=== PATIENT | female | born 1970 | race Caucasian/White ===

== ENCOUNTER 2020-10-23 11:02 | Observation (INO) | payer OTHER ==
[~2020-10-23] VITALS: Ht 175.3 cm; Wt 95.2 kg
[~2020-10-23 11:02] MED LIST: ACEBUTCAFT PO; ACEDIPPM PO; ALPR.5 PO; ALPR1 PO; AMOCLA500 PO; Ativan1 MG SL; BUTASPCAFT PO; CEPH500 PO; CETI5 PO; CODBUTACEC PO; ESCI10 PO; ESTEST.625 PO; ESTEST.62T PO; ESTR2 PO; ESTRADIOL PO; Esgic Tablet1 EACH PO; FLONASE ALLERG9.9 ML; Fiorinal Capsu1 EACH PO; HYDACE5 PO; HYDCHL25 PO; IBUP400 PO; LITH300C PO; LORA.5 PO; LORA1 PO; METO25 PO; MULVITMIND PO; NAPR500 PO; Norco 5-325 Ta1 EACH PO; ONDA4 PO; ONDA4ODT MM; OXYACE5T PO; PROC10 PO; PROM25 PO; Percocet 10-321 EACH PO; Phenergan25 M1 PO; TOPI100 PO; TRAM50 PO; TRAZ100 PO; TRAZ50 PO; Vibramycin100 MG PO; ZIPR80 PO; Zofran Odt4 MG SL
[2020-10-23 11:42] LABS: Source, Urine Clean Catch
[2020-10-23 11:46] LABS: BASOPHILS ABSOLUTE AUTO 0.07 K/mm3 (0.00-0.23); BASOPHILS PERCENT AUTO 1 % (0-2); EOSINOPHILS ABSOLUTE AUTO 0.34 K/mm3 (0.00-0.68); EOSINOPHILS PERCENT AUTO 4 % (0-6); Hemoglobin 14.5 g/dL (11.5-16.0); IMMATURE GRAN ABSOLUTE AUTO 0.06 K/mm3 (0.00-0.10); IMMATURE GRAN PERCENT AUTO 1 % (0-1); LYMPHOCYTES ABSOLUTE AUTO 2.51 K/mm3 (0.84-5.20); LYMPHOCYTES PERCENT AUTO 30 % (21-46); MONOCYTES ABSOLUTE AUTO 0.87 K/mm3 (0.16-1.47); MONOCYTES PERCENT AUTO 11 % (4-13); Mean Corpuscular HGB 31.5 pg (26.0-34.0); Mean Corpuscular HGB Conc 33.7 g/dL (31.5-36.5); Mean Corpuscular Volume 94 fL (80-100); Mean Platelet Volume 10.5 fL (9.1-12.4); NEUTROPHILS ABSOLUTE AUTO 4.42 K/mm3 (1.96-9.15); NEUTROPHILS PERCENT AUTO 54 % (41-73); Platelet Count 275 K/mm3 (150-400); RDW Standard Deviation 44.2 fL (35.1-46.3); White Blood Cell Count 8.27 K/mm3 (4.00-11.30)
[2020-10-23 11:51] LABS: Appearance, Urine Hazy (Clear); Bilirubin, Urine Neg (Neg); Blood, Urine 1+ (Neg); Color, Urine Yellow (P-Yellow); Glucose Qualitative, Urine Neg (Neg); Ketones, Urine Neg (Neg); Leukocyte Esterase, Urine 1+ (Neg); Nitrite, Urine Neg (Neg); Protein, Urine 1+ (Neg); Urobilinogen, Urine 1+ (Normal)
[2020-10-23] MEDS ORDERED: TOPI100 PO (12:04)
[2020-10-23] MEDS ORDERED: Hydroxyzine HCl50 MG PO (12:04)
[2020-10-23 12:12] LABS: Alanine Aminotransfer (ALT/SGP 70 U/L (12-78); Albumin, Blood 3.6 g/dL (3.4-5.0); Albumin/Globulin Ratio 0.8 (0.8-1.8); Alk Phos 117 U/L (50-136); Anion Gap 8 mmol/L (6-16); Aspartate Aminotrans (AST/SGOT 41 U/L (12-37); Bilirubin, Total 0.5 mg/dL (0.1-1.0); Blood Urea Nitrogen 18 mg/dL (8-24); CO2, Blood 21 mmol/L (21-32); Calcium, Blood 9.5 mg/dL (8.5-10.1); Chloride, Blood 112 mmol/L (98-108); Creatinine, Blood 0.82 mg/dL (0.40-1.00); Ethanol (Alcohol), Blood, Med <3 mg/dL; Globulin, Blood 4.6 g/dL (2.2-4.0); Glomerular Filtration Rate >60 (60-); Glucose, Blood 105 mg/dL (70-99); Potassium, Blood 3.7 mmol/L (3.5-5.5); Salicylate <1.7 mg/dL (2.8-20.0); Sodium, Blood 141 mmol/L (136-145); Total Protein, Blood 8.2 g/dL (6.4-8.2)
[2020-10-23 12:14] LABS: Acetaminophen, Random <2.0 ug/mL (10.0-30.0)
[2020-10-23 12:16] LABS: Red Blood Cells, Urine 0-2 /hpf (0-2); White Blood Cells, Urine 0-2 /hpf (0-5)
[2020-10-23 12:17] LABS: Bacteria Mod /hpf; Squamous Epithelial Cells Mod /hpf (Few)
[2020-10-23 12:18] LABS: U Amphetamine Screen Not Detected; U Barbituate Screen Not Detected; U Benzodiazapine Screen Not Detected; U Buprenorphine Screen Not Detected; U Cannabinoids Screen Not Detected; U Cocaine Screen Not Detected; U Methadone Screen Not Detected; U Methamphetamine Screen Not Detected; U Opiates Screen Not Detected; U Oxycodone Screen Not Detected; U Phencyclidine Screen Not Detected; U Propoxyphene Screen Not Detected
[2020-10-23 12:19] LABS: Calcium Oxalate Crystals Few /hpf
[2020-10-23] MEDS ORDERED: ESTRADIOL0.5 MG PO (19:23)
[2020-10-23] MEDS ORDERED: METOPROLOL TART25 MG PO (19:23)
[2020-10-23] MEDS ORDERED: HYDCHL50 PO (19:24)
[2020-10-24] MEDS ORDERED: PARO20 PO (11:21)
== END 2020-10-24 11:42 | disposition home or self-care (01) ==
LOC: ER 11:02 → EOR 11:03
PROVIDERS: Physician Assistant; ADMIT Emergency Medicine
DX: R45.851 Suicidal ideations (principal); R56.9 Unspecified convulsions; F32.9 Major depressive disorder, single episode, unspecified; F41.9 Anxiety disorder, unspecified; Z91.5 Personal history of self-harm; Z88.1 Allergy status to other antibiotic agents; Z88.8 Allergy status to other drugs, medicaments and biological substances
CPT/HCPCS: 36415; 80053; 81001; 81025; 85025; 87086; 99285; A9270; G0378; G0480; Q3014

== ENCOUNTER 2021-02-17 12:20 | Emergency (ER) | payer OTHER ==
[~2021-02-17] VITALS: Ht 172.7 cm; Wt 90.7 kg
[~2021-02-17 12:20] MED LIST changes: +ESTRADIOL0.5 MG PO; +HYDCHL50 PO; +Hydroxyzine HCl50 MG PO; +METOPROLOL TART25 MG PO; +PARO20 PO
[2021-02-17 13:13] LABS: BASOPHILS ABSOLUTE AUTO 0.08 K/mm3 (0.00-0.23); BASOPHILS PERCENT AUTO 1 % (0-2); EOSINOPHILS PERCENT AUTO 4 % (0-6); Hematocrit 42.7 % (33.0-51.0); Hemoglobin 13.8 g/dL (11.5-16.0); IMMATURE GRAN ABSOLUTE AUTO 0.22 K/mm3 (0.00-0.10); IMMATURE GRAN PERCENT AUTO 3 % (0-1); LYMPHOCYTES ABSOLUTE AUTO 2.38 K/mm3 (0.84-5.20); LYMPHOCYTES PERCENT AUTO 35 % (21-46); MONOCYTES ABSOLUTE AUTO 0.76 K/mm3 (0.16-1.47); MONOCYTES PERCENT AUTO 11 % (4-13); Mean Corpuscular HGB 31.9 pg (26.0-34.0); Mean Corpuscular HGB Conc 32.3 g/dL (31.5-36.5); Mean Corpuscular Volume 99 fL (80-100); NEUTROPHILS ABSOLUTE AUTO 3.08 K/mm3 (1.96-9.15); NEUTROPHILS PERCENT AUTO 45 % (41-73); RDW Coefficient Variation 13.5 % (11.7-14.2); RDW Standard Deviation 49.2 fL (35.1-46.3); Red Blood Cell Count 4.32 M/mm3 (3.80-5.20); White Blood Cell Count 6.82 K/mm3 (4.00-11.30)
[2021-02-17 13:32] LABS: Source, Urine Clean Catch
[2021-02-17 13:33] LABS: Mean Platelet Volume 11.2 fL (9.1-12.4); Platelet Count 233 K/mm3 (150-400)
[2021-02-17 13:35] LABS: Alanine Aminotransfer (ALT/SGP 119 U/L (12-78); Albumin, Blood 3.4 g/dL (3.4-5.0); Albumin/Globulin Ratio 0.8 (0.8-1.8); Alk Phos 120 U/L (50-136); Anion Gap 6 mmol/L (6-16); Aspartate Aminotrans (AST/SGOT 94 U/L (12-37); Bilirubin, Total 0.4 mg/dL (0.1-1.0); Blood Urea Nitrogen 13 mg/dL (8-24); CO2, Blood 20 mmol/L (21-32); Chloride, Blood 114 mmol/L (98-108); Creatinine, Blood 0.81 mg/dL (0.40-1.00); Globulin, Blood 4.3 g/dL (2.2-4.0); Glomerular Filtration Rate >60 (60-); Glucose, Blood 91 mg/dL (70-99); Magnesium, Blood 2.1 mg/dL (1.6-2.4); Sodium, Blood 140 mmol/L (136-145); Total Protein, Blood 7.7 g/dL (6.4-8.2)
[2021-02-17 13:39] LABS: Bilirubin, Urine Neg (Neg); Blood, Urine Neg (Neg); Glucose Qualitative, Urine Neg (Neg); Ketones, Urine Neg (Neg); Leukocyte Esterase, Urine Neg (Neg); Nitrite, Urine Neg (Neg); Protein, Urine Neg (Neg); Urobilinogen, Urine NORM (Normal)
[2021-02-17 13:46] LABS: Appearance, Urine Clear (Clear); Color, Urine Yellow (P-Yellow)
== END 2021-02-17 17:08 | disposition home or self-care (01) ==
LOC: ER 12:20
PROVIDERS: Student in an Organized Health Care Education/Training Program
DX: G40.909 Epilepsy, unspecified, not intractable, without status epilepticus (principal); Z88.1 Allergy status to other antibiotic agents; Z88.8 Allergy status to other drugs, medicaments and biological substances; Z79.899 Other long term (current) drug therapy
CPT/HCPCS: 70450; 80053; 81003; 83735; 85025; 93005; 93010; 96374; 99285-25; J2405; J7030

== ENCOUNTER 2021-05-30 14:28 | Emergency (ER) | payer OTHER ==
[~2021-05-30] VITALS: Ht 175.3 cm; Wt 99.8 kg
[2021-05-30 15:46] LABS: BASOPHILS ABSOLUTE AUTO 0.08 K/mm3 (0.00-0.23); BASOPHILS PERCENT AUTO 1 % (0-2); EOSINOPHILS ABSOLUTE AUTO 0.47 K/mm3 (0.00-0.68); EOSINOPHILS PERCENT AUTO 5 % (0-6); Hematocrit 44.5 % (33.0-51.0); Hemoglobin 14.9 g/dL (11.5-16.0); IMMATURE GRAN PERCENT AUTO 2 % (0-1); LYMPHOCYTES ABSOLUTE AUTO 2.66 K/mm3 (0.84-5.20); LYMPHOCYTES PERCENT AUTO 29 % (21-46); MONOCYTES ABSOLUTE AUTO 0.86 K/mm3 (0.16-1.47); MONOCYTES PERCENT AUTO 9 % (4-13); Mean Corpuscular HGB Conc 33.5 g/dL (31.5-36.5); Mean Corpuscular Volume 96 fL (80-100); Mean Platelet Volume 11.2 fL (9.1-12.4); NEUTROPHILS PERCENT AUTO 54 % (41-73); Platelet Count 286 K/mm3 (150-400); RDW Coefficient Variation 13.4 % (11.7-14.2); RDW Standard Deviation 47.4 fL (35.1-46.3); Red Blood Cell Count 4.65 M/mm3 (3.80-5.20); White Blood Cell Count 9.27 K/mm3 (4.00-11.30)
[2021-05-30 16:00] LABS: Alanine Aminotransfer (ALT/SGP 134 U/L (12-78); Albumin, Blood 3.9 g/dL (3.4-5.0); Albumin/Globulin Ratio 0.8 (0.8-1.8); Alk Phos 154 U/L (50-136); Anion Gap 6 mmol/L (6-16); Aspartate Aminotrans (AST/SGOT 127 U/L (12-37); Bilirubin, Total 0.5 mg/dL (0.1-1.0); Blood Urea Nitrogen 10 mg/dL (8-24); Bun/Creatinine Ratio 12.2 (12.0-20.0); CO2, Blood 23 mmol/L (21-32); Calcium, Blood 9.7 mg/dL (8.5-10.1); Chloride, Blood 111 mmol/L (98-108); Creatinine, Blood 0.82 mg/dL (0.40-1.00); Globulin, Blood 5.2 g/dL (2.2-4.0); Glomerular Filtration Rate >60 (60-); Glucose, Blood 104 mg/dL (70-99); Sodium, Blood 140 mmol/L (136-145); Total Protein, Blood 9.1 g/dL (6.4-8.2); Troponin I <0.015 ng/mL (0.000-0.040)
== END 2021-05-30 20:00 | disposition home or self-care (01) ==
LOC: ER 14:28
PROVIDERS: Physician Assistant
DX: G43.909 Migraine, unspecified, not intractable, without status migrainosus (principal); R20.2 Paresthesia of skin; Z88.1 Allergy status to other antibiotic agents; Z88.8 Allergy status to other drugs, medicaments and biological substances; Z79.899 Other long term (current) drug therapy
CPT/HCPCS: 36415; 70450; 80053; 82947; 84484; 85025; 93005; 93010; 96374; 96375; 99284-25; J0780; J1200; J1885; J2405; J7030

== ENCOUNTER 2021-08-03 13:27 | Emergency (ER) | payer OTHER ==
[~2021-08-03] VITALS: Ht 175.3 cm; Wt 98.9 kg
[2021-08-03] MEDS ORDERED: PROM25 PO (16:39)
[2021-08-03] MEDS ORDERED: OXYC5 PO (16:39)
== END 2021-08-03 16:59 | disposition home or self-care (01) ==
LOC: ER 13:27
DX: S30.0XXA Contusion of lower back and pelvis, initial encounter (principal); G43.909 Migraine, unspecified, not intractable, without status migrainosus; R56.9 Unspecified convulsions; Z88.1 Allergy status to other antibiotic agents; Z88.8 Allergy status to other drugs, medicaments and biological substances; Z79.899 Other long term (current) drug therapy; W01.0XXA Fall on same level from slipping, tripping and stumbling without subsequent striking against object, initial encounter
CPT/HCPCS: 36415; 72148; 96374; 96375; 99283-25; A9270; J1170; J2405

== ENCOUNTER 2022-01-16 08:55 | Emergency (ER) | payer OTHER ==
[~2022-01-16] VITALS: Ht 175.3 cm; Wt 94.3 kg
[~2022-01-16 08:55] MED LIST changes: +OXYC5 PO
[2022-01-16 09:30] LABS: Calcium, Ionized (POC) 1.14 mmol/L (1.10-1.46); Chloride (POC) 108 mmol/L (98-108); Creatinine (POC) 0.9 mg/dL (0.6-1.0); Glucose (ISTAT POC) 107 mg/dL (70-99); Hemoglobin (POC) 14.3 g/dL (12.0-16.0); Potassium (POC) 6.4 mmol/L (3.5-5.5); Sodium (POC) 140 mmol/L (135-148); Total CO2 (POC) 23 mmol/L (21-32)
[2022-01-16 09:49] LABS: Bun/Creatinine Ratio 14.7 (12.0-20.0); Calcium, Blood 9.5 mg/dL (8.5-10.1); Creatinine, Blood 0.95 mg/dL (0.40-1.00); Potassium, Blood 3.7 mmol/L (3.5-5.5)
[2022-01-16] MEDS ORDERED: OXYC5 PO ×2 (11:51→11:53)
== END 2022-01-16 12:04 | disposition home or self-care (01) ==
LOC: ER 08:55
PROVIDERS: Emergency Medicine
DX: G83.84 Todd's paralysis (postepileptic) (principal); G40.909 Epilepsy, unspecified, not intractable, without status epilepticus; F32.A Depression, unspecified; F12.90 Cannabis use, unspecified, uncomplicated; G43.909 Migraine, unspecified, not intractable, without status migrainosus; Z79.899 Other long term (current) drug therapy
CPT/HCPCS: 70450; 80047; 80048; 85014; 96374; 96375; 99285-25; J1170; J2405

== ENCOUNTER 2023-05-05 14:30 | Emergency (ER) | payer OTHER ==
[~2023-05-05] VITALS: Ht 175.3 cm; Wt 97.5 kg
[~2023-05-05 14:30] MED LIST changes: +ASPI81CH PO; +ATORVASTATIN CA10 MG PO; +Cyclobenzaprine5 MG PO; +GABA300 PO; +Lysine500 MG PO; +PROM25; +ZEBUTAL 50-3251 EAC1 PO; +ZINC15 PO
[2023-05-05 16:13] LABS: BASOPHILS ABSOLUTE AUTO 0.07 K/mm3 (0.00-0.23); BASOPHILS PERCENT AUTO 1 % (0-2); EOSINOPHILS ABSOLUTE AUTO 0.46 K/mm3 (0.00-0.68); EOSINOPHILS PERCENT AUTO 5 % (0-6); Hematocrit 45.4 % (33.0-51.0); Hemoglobin 15.2 g/dL (11.5-16.0); IMMATURE GRAN ABSOLUTE AUTO 0.14 K/mm3 (0.00-0.10); IMMATURE GRAN PERCENT AUTO 2 % (0-1); LYMPHOCYTES ABSOLUTE AUTO 3.14 K/mm3 (0.84-5.20); LYMPHOCYTES PERCENT AUTO 33 % (21-46); MONOCYTES ABSOLUTE AUTO 0.96 K/mm3 (0.16-1.47); MONOCYTES PERCENT AUTO 10 % (4-13); Mean Corpuscular HGB 30.8 pg (26.0-34.0); Mean Corpuscular HGB Conc 33.5 g/dL (31.5-36.5); Mean Corpuscular Volume 92 fL (80-100); Mean Platelet Volume 10.5 fL (9.1-12.4); NEUTROPHILS ABSOLUTE AUTO 4.86 K/mm3 (1.96-9.15); NEUTROPHILS PERCENT AUTO 50 % (41-73); Platelet Count 290 K/mm3 (150-400); RDW Coefficient Variation 13.7 % (11.7-14.2); RDW Standard Deviation 46.5 fL (35.1-46.3); Red Blood Cell Count 4.94 M/mm3 (3.80-5.20); White Blood Cell Count 9.63 K/mm3 (4.00-11.30)
[2023-05-05 16:32] LABS: Albumin, Blood 4.2 g/dL (3.4-5.0); Albumin/Globulin Ratio 0.9 (0.8-1.8); Bilirubin, Total 0.5 mg/dL (0.1-1.0); Bun/Creatinine Ratio 11.6 (12.0-20.0); Calcium, Blood 10.3 mg/dL (8.5-10.1); Creatinine, Blood 0.95 mg/dL (0.40-1.00); Globulin, Blood 4.6 g/dL (2.2-4.0); Magnesium, Blood 2.3 mg/dL (1.6-2.4); Potassium, Blood 4.3 mmol/L (3.5-5.5); Total Protein, Blood 8.8 g/dL (6.4-8.2)
[2023-05-05] MEDS ORDERED: ALMACONE SUSPE355 ML PO (18:46)
[2023-05-05] MEDS ORDERED: FAMO20 PO (18:46)
[2023-05-05 18:52] LABS: Source, Urine Clean Catch
[2023-05-05 18:57] LABS: Appearance, Urine Clear (Clear); Bilirubin, Urine Neg (Neg); Blood, Urine 1+ (Neg); Color, Urine Yellow (P-Yellow); Glucose Qualitative, Urine Neg (Neg); Ketones, Urine Neg (Neg); Leukocyte Esterase, Urine Neg (Neg); Nitrite, Urine Neg (Neg); Protein, Urine 1+ (Neg); Urobilinogen, Urine NORM (Normal); pH, Urine 6.5 (5.0-8.0)
[2023-05-05 19:09] LABS: Bacteria Rare /hpf; Red Blood Cells, Urine 0-2 /hpf (0-2); Squamous Epithelial Cells Few /hpf (Few); White Blood Cells, Urine 0-2 /hpf (0-5)
[2023-05-05 20:30] VITALS: BP 110/72
== END 2023-05-05 20:45 | disposition home or self-care (01) ==
LOC: ER 14:30
PROVIDERS: Emergency Medicine; Physician Assistant
DX: E86.0 Dehydration (principal); E66.9 Obesity, unspecified; Z68.31 Body mass index [BMI] 31.0-31.9, adult; Z88.1 Allergy status to other antibiotic agents; Z88.8 Allergy status to other drugs, medicaments and biological substances; Z79.899 Other long term (current) drug therapy; Z79.82 Long term (current) use of aspirin
CPT/HCPCS: 74177; 80053; 81001; 83690; 83735; 85025; 93005; 93010; 96361; 96374; 96375; 99284-25; A9270; J0780; J1200; J1885; J7030; Q9967

== ENCOUNTER 2023-09-21 09:24 | Day surgery (SDC) | payer OTHER ==
[2023-09-21] VITALS (14 sets, daily range): BP systolic 113–144; BP diastolic 64–96
[~2023-09-21] VITALS: Ht 175.3 cm; Wt 93.2 kg
[~2023-09-21 09:24] MED LIST changes: +ALMACONE SUSPE355 ML PO; +DOCU100 PO; +FAMO20 PO
--- NOTE | 2023-09-21 10:22 | NUR ---
09/21/23 1022 Celeste Vargas HISTORY, CHART, MEDICATIONS AND ALLERGIES REVIEWED BEFORE START OF PROCEDURE. PATIENT CONFIRMS NPO STATUS AND AGREES WITH SCHEDULED PROCEDURE. 3-LEAD EKG REVIEWED WITH PHYSICIAN PRIOR TO START OF PROCEDURE. MONITOR INTACT WITH CONTINUOUS PULSE OXIMETRY,CAPNOGRAPHY, 3-LEAD EKG, INTERMITTENT BP. SUPPLEMENTAL O2 TO BE TITRATED THROUGHOUT PROCEDURE TO MAINTAIN O2 SATURATION ABOVE 90%. PATIENT DETERMINED TO BE ASA APPROPRIATE FOR PROPOFOL SEDATION PRIOR TO START OF PROCEDURE BY DR. HERNANDEZ.
--- NOTE | 2023-09-21 10:32 | NUR ---
Patient up to Ambulate independently. Gait steady. History, Chart, Medications and Allergies reviewed before start of procedure. Lungs clear T/O to Auscultation. Patient confirms NPO status and agrees with scheduled surgery. Pre-Op teaching done. Pt verbalizes understanding. Patient States Post-Procedure ride home has been arranged WITH FRIEND.
--- NOTE | 2023-09-21 11:03 | NUR ---
REPORT RECEIVED FROM KRISTINA MONCADA. VSS. PT ABLE TO REPOSITION SELF IN BED. PT REQUESTING PO FLUIDS AND TOLERATING THEM WELL. PT DENIES PAIN, NAUSEA, OR OTHER DISCOMFORTS.
== END 2023-09-21 11:22 | disposition home or self-care (01) ==
LOC: ORSCMMR 09:24 → ORD 10:30 → ORSCMMR 11:22
PROVIDERS: Internal Medicine Gastroenterology
PROC: 0DBN8ZX Excision of Sigmoid Colon, Via Natural or Artificial Opening Endoscopic, Diagnostic (ICD-10-PCS; principal; 2023-09-21 10:30)
PROC: 0DBK8ZX Excision of Ascending Colon, Via Natural or Artificial Opening Endoscopic, Diagnostic (ICD-10-PCS; principal; 2023-09-21 10:30)
DX: K59.09 Other constipation (principal); R56.9 Unspecified convulsions; D12.2 Benign neoplasm of ascending colon; K63.5 Polyp of colon; F32.A Depression, unspecified; I10 Essential (primary) hypertension; E78.00 Pure hypercholesterolemia, unspecified; F41.9 Anxiety disorder, unspecified; F41.0 Panic disorder [episodic paroxysmal anxiety]; Z68.31 Body mass index [BMI] 31.0-31.9, adult; Z79.82 Long term (current) use of aspirin; Z79.899 Other long term (current) drug therapy
CPT/HCPCS: 88305; J2704; J7120

== ENCOUNTER → 2023-09-27 | Outpatient (CLI) | payer OTHER | END | disposition home or self-care (01) | LOC: LAB 08:15 → LAB SHORT 08:15 | PROVIDERS: Physician Assistant | DX: E87.8 Other disorders of electrolyte and fluid balance, not elsewhere classified (principal) | CPT/HCPCS: 81050; 82436 ==

== ENCOUNTER → 2024-10-26 | Outpatient (CLI) | payer OTHER ==
[2024-10-26 15:14] LABS: BASOPHILS ABSOLUTE AUTO 0.06 K/mm3 (0.00-0.23); BASOPHILS PERCENT AUTO 1 % (0-2); EOSINOPHILS ABSOLUTE AUTO 0.33 K/mm3 (0.00-0.68); EOSINOPHILS PERCENT AUTO 4 % (0-6); Hematocrit 44.7 % (33.0-51.0); Hemoglobin 14.8 g/dL (11.5-16.0); IMMATURE GRAN ABSOLUTE AUTO 0.08 K/mm3 (0.00-0.10); IMMATURE GRAN PERCENT AUTO 1 % (0-1); LYMPHOCYTES ABSOLUTE AUTO 3.03 K/mm3 (0.84-5.20); LYMPHOCYTES PERCENT AUTO 33 % (21-46); MONOCYTES ABSOLUTE AUTO 0.86 K/mm3 (0.16-1.47); MONOCYTES PERCENT AUTO 9 % (4-13); Mean Corpuscular HGB 30.7 pg (26.0-34.0); Mean Corpuscular HGB Conc 33.1 g/dL (31.5-36.5); Mean Corpuscular Volume 93 fL (80-100); Mean Platelet Volume 10.5 fL (9.1-12.4); NEUTROPHILS ABSOLUTE AUTO 4.82 K/mm3 (1.96-9.15); NEUTROPHILS PERCENT AUTO 52 % (41-73); Platelet Count 295 K/mm3 (150-400); Red Blood Cell Count 4.82 M/mm3 (3.80-5.20); White Blood Cell Count 9.18 K/mm3 (4.00-11.30)
[2024-10-26 15:30] LABS: Albumin/Globulin Ratio 0.9 (0.8-1.8); Bilirubin, Total 0.4 mg/dL (0.1-1.0); Bun/Creatinine Ratio 10.9 (12.0-20.0); Calcium, Blood 10.1 mg/dL (8.5-10.1); Creatinine, Blood 1.01 mg/dL (0.40-1.00); Globulin, Blood 4.4 g/dL (2.2-4.0); Total Protein, Blood 8.4 g/dL (6.4-8.2)
== END ==
LOC: LAB 15:10 → LAB SHORT 15:10
DX: R10.13 Epigastric pain (principal)
CPT/HCPCS: 80053; 84484; 85025

== ENCOUNTER 2024-12-06 11:00 | Day surgery (SDC) | payer OTHER ==
[~2024-12-06] VITALS: Ht 175.3 cm; Wt 99.0 kg
[~2024-12-06 11:00] MED LIST changes: +Lactated Ringer's 1,000 ML IV ONE; +propofoL 50 ML IV ONE
[2024-12-06] MEDS ORDERED: ZOLOFT50 MG PO (12:05)
[2024-12-06] MEDS ORDERED: ONDANSETRON ODT16 MG PO (12:06)
[2024-12-06] MEDS ORDERED: Lactated Ringer's 1,000 ML IV ONE (12:09)
[2024-12-06 14:17] VITALS: BP 122/79
--- NOTE | 2024-12-06 16:08 | NUR ---
[facility] RN LISTENING TO LUNG SOUNDS, DIMINISHED BUT CLEAR, ENCOURAGED PATIENT TO COUGH, STILL DIMINISHED, PATIENT TAKES SHALLOW BREATHS. RN DEMONSTRATED DEEP BREATHING.
--- NOTE | 2024-12-06 16:11 | NUR ---
12/06/24 1611 Kelin [place] LATE ENTRY: RN DISCUSSED WITH DR FERGUSON PRIOR TO DISCHARGE THAT PATIENT CONTINUED TO HAVE DIMINISHED LUNG SOUNDS LIKE PRE-OP BUT THAT HER OXYGEN SATURATION IS WNL. NO NEW ORDERS. RN DISCUSSED THAT PATIENT REPORTED 2/10 THROAT PAIN AND HAS A RASPY VOICE AND DOES NOT WANT TO TALK BECAUSE IT HURTS. PER DR FERGUSON PATIENT CAN TRY THROAT LOZENGES FOR THE PAIN, NO OTHER ORDERS. THIS COMMUNICATED TO PATIENT, RN ENCOURAGED PATIENT TO CALL DR FERGUSON'S OFFICE WITH WORSENING OR CONTINUED THROAT PAIN. RN ALSO MENTIONED THAT COLD FLUIDS CAN HELP ALLEVIATE THE THROAT PAIN OR WARM LIQUIDS.
== END 2024-12-06 14:09 | disposition home or self-care (01) ==
LOC: ORSCSDS 11:00
PROVIDERS: Internal Medicine Gastroenterology
PROC: 0DJ08ZZ Inspection of Upper Intestinal Tract, Via Natural or Artificial Opening Endoscopic (ICD-10-PCS; principal; 2024-12-06 12:15)
DX: K21.9 Gastro-esophageal reflux disease without esophagitis (principal); R74.01 Elevation of levels of liver transaminase levels; F41.9 Anxiety disorder, unspecified; I10 Essential (primary) hypertension; G40.909 Epilepsy, unspecified, not intractable, without status epilepticus; Z79.82 Long term (current) use of aspirin; Z79.899 Other long term (current) drug therapy
CPT/HCPCS: J2704; J7120